=== PATIENT | male | born 1960 | race Caucasian/White ===

== ENCOUNTER 2022-08-13 09:43 | Outpatient (CLI) | payer BC, SELFPAY ==
--- NOTE | 2022-08-13 11:00 | NEURO_ITS ---
IMPRESSION: Complains of numbness of hands. Nondiabetic with history of Carpal Tunnel Release longtime ago # Mild Carpal tunnel syndrome bilaterally, left greater than right. 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 Motor Nerve Conduction Upper Extremities Median Nerve Conduction Velocity (m/sec) Terminal Latency (msec) Response Voltage(mV) Elbow-Wrist Wrist Elbow Wrist Right 46 4.0 2 2 Left 50 4.6 3 2 Ulnar Nerve Conduction Velocity (m/sec) Terminal Latency (msec) Response Voltage(mV) Above Elbow Below Elbow Wrist Above Elbow Below Elbow Wrist Right 48 45 2.8 6 3 9 Left 54 57 3.4 7 7 7 F-Wave Latency Median (ms) Ulnar (ms) Right 26.0 33.2 Left 29.0 33.6 Sensory Nerve Conduction Upper Extremities Median Nerve Stimulation Terminal Latency (msec) Wrist/Digit Response Voltage (uV) Wrist Right 4.2/4.2 53/55 Left 6.8/6.3 4/15 Ulnar Nerve Stimulation Terminal Latency (msec) Wrist/Digit Response Voltage (uV) Wrist Right 3.8 57 Left 3.7 68 Radial Nerve Terminal Latency (msec) Response Voltage(mV) Right 2.9 84 Left 2.6 42 Left Right Muscles Examined Fibrillation Fasciculation Scarcity Voltage Duration Left Right Left Right Left Right Left Right Left Right Deltoid Biceps X X Brachioradialis Triceps X X Pronator Teres X X Ext Indicis X X Ext Digitorum X X Abd Poll Brev X X 1st Dorsal Interosseus X X Abd Dig Min MTDD
== END 2022-08-13 09:44 | disposition home or self-care (01) ==
LOC: ANHNEURO 09:45
PROVIDERS: PCP Internal Medicine; Visit Provider Internal Medicine
DX: R20.2 Paresthesia of skin (principal); G56.01 Carpal tunnel syndrome, right upper limb; G56.21 Lesion of ulnar nerve, right upper limb
CPT/HCPCS: 95886; 95911

== ENCOUNTER 2022-12-23 09:49 | Outpatient (NON) | payer BC, SELFPAY | END 2022-12-23 09:50 | disposition home or self-care (01) | LOC: ANHLAB 12-24 09:52 | PROVIDERS: PCP Internal Medicine; Visit Provider Nurse Practitioner | DX: L57.0 Actinic keratosis (principal) | CPT/HCPCS: 88305 ==

== ENCOUNTER 2024-08-10 01:21 | Day surgery (SDC) | payer BC, SELFPAY ==
[2024-07-25 14:43] VITALS: BMI 24.4
[2024-08-10 08:21] VITALS: BMI 25.9
[2024-08-10 08:26] VITALS: BP 139/88; PULSE 69; RESP 18; TEMP 36.1; O2SAT 99
[2024-08-10] MEDS: LACTATED RINGERS 1,000 ML 150 ML IV CONT (08:33)
--- NOTE | 2024-08-10 09:05 | P.PNAN_ITS ---
Anes - Initial Pre Proc Eval Procedure: Operation Date: 08/10/24 09:30 Proposed Procedures p Colonoscopy - Justin Ely MD Date/Time: 08/10/24 09:05 Surgeon: Justin Ely MD Pre Op Diagnosis: + Cologuard Patient Data Age: 64 Gender: M Height: 1.78 m Weight: 81.9 kg Last Vital Signs Temp 97.0 F L 08/10/24 08:26 Pulse 69 08/10/24 08:26 Resp 18 08/10/24 08:26 BP 139/88 08/10/24 08:26 Pulse Ox 99 08/10/24 08:26 O2 Del Method Room Air 08/10/24 08:26 Allergies Allergy/AdvReac Type Severity Reaction Status Date / Time No Known Allergies Allergy Mild Verified 08/10/24 08:20 Home Medications Medication Instructions Recorded Confirmed Type aspirin 81 mg tablet 81 mg PO DAILY 07/25/24 07/25/24 History losartan 50 mg-hydrochlorothiazide 1 tablet PO DAILY 07/25/24 07/25/24 History 12.5 mg tablet meloxicam 15 mg tablet 15 mg PO DAILY 07/25/24 07/25/24 History omeprazole 40 mg capsule,delayed 40 mg PO DAILY 07/25/24 07/25/24 History release rosuvastatin 20 mg tablet 20 mg PO DAILY 07/25/24 07/25/24 History Patient hx anesthesia problems: none Family hx anesthesia problems: none Results Review: All pre-operative results and documents have been reviewed as part of the pre- operative evaluation. [facility] Social History Social History Smoking status: Never smoker Alcohol intake: current Drinks per week: 6 Substance use: current Substance use type: marijuana Last use: weekly Living arrangements: with family Spiritual care concerns: No Anes - Eval Final PreProcedure Day of Procedure 08/10/24 09:05 Patient weight: normal Heart: regular rate and rhythm Lungs: clear to auscultation Airway: Mallampati scale class II Neurological: alert and oriented Last oral intake: >/= 8 hours ASA classification: III Emergent: no Anesthetic plan: proceed Anesthesia type and monitoring: general GIVS and standard monitoring Results Review: All pre-operative results and documents have been reviewed as part of the pre- operative evaluation. Informed Consent: The patient's anesthetic plan and its attendant risks and benefits were discussed with the patient/family/POA. Questions were solicited and answers p rovided to the satisfaction of the patient/family/POA.
--- NOTE | 2024-08-10 09:15 | PM.IMHP ---
H&P: HPI History of Present Illness Date/Time: 08/10/24 09:15 Chief Complaint: Positive Cologuard Narrative: This is the patient's first colonoscopy. He had a positive cologuard test. There are no GI symptoms and there is no family history of colorectal cancer. Review of Systems Review of Systems: All systems reviewed & are unremarkable except as noted in HPI and below PMFSH Social History Social History Smoking status: Never smoker Alcohol intake: current Drinks per week: 6 Substance use: current Substance use type: marijuana Last use: weekly Living arrangements: with family Spiritual care concerns: No Meds Home Medications and Allergies Home Medications Medication Instructions Recorded Confirmed Type aspirin 81 mg tablet 81 mg PO DAILY 07/25/24 07/25/24 History losartan 50 mg-hydrochlorothiazide 1 tablet PO DAILY 07/25/24 07/25/24 History 12.5 mg tablet meloxicam 15 mg tablet 15 mg PO DAILY 07/25/24 07/25/24 History omeprazole 40 mg capsule,delayed 40 mg PO DAILY 07/25/24 07/25/24 History release rosuvastatin 20 mg tablet 20 mg PO DAILY 07/25/24 07/25/24 History Allergies Allergy/AdvReac Type Severity Reaction Status Date / Time No Known Allergies Allergy Mild Verified 08/10/24 08:20 Vital Signs Vital Signs - 24 hr 08/10/24 08:26 Temperature 97.0 F L Pulse Rate 69 Respiratory Rate 18 Blood Pressure 139/88 Pulse Oximetry 99 Oxygen Delivery Room Air Exam Const: General: cooperative and healthy appearing Resp: Effort & Inspection: normal respiratory effort and able to speak in complete sentences Auscultation: clear to auscultation bilaterally Cardio: Rate: regular rate Rhythm: regular rhythm GI: Inspection: normal to inspection GI Palp: No No hepatosplenomegaly present Auscultation: normal bowel sounds Rectal Exam: deferred Skin: General skin exam: normal color Psych: Appearance: grossly normal Mental Status: mental status grossly normal Assessment and Plan Assessment and plan (1) Positive colorectal cancer screening using Cologuard test: Code(s): R19.5 - Other fecal abnormalities Status: Acute Assessment and Plan: The patient is deemed a good candidate for the procedure. Consent signed. Will proceed.
[2024-08-10 09:37] VITALS: BP 119/82; PULSE 63; RESP 18; O2SAT 100
[2024-08-10 09:47] VITALS: BP 134/89; PULSE 58; RESP 18; O2SAT 100
[2024-08-10 09:57] VITALS: BP 140/78; PULSE 58; RESP 18; O2SAT 100
== END 2024-08-10 10:03 | disposition home or self-care (01) ==
PROVIDERS: PCP Internal Medicine; Visit Provider Internal Medicine Gastroenterology
PROC: 0DJD8ZZ Inspection of Lower Intestinal Tract, Via Natural or Artificial Opening Endoscopic (ICD-10-PCS; CPT 45378; principal; 2024-08-10 09:30)
DX: R19.5 Other fecal abnormalities (principal); D12.5 Benign neoplasm of sigmoid colon; K57.30 Diverticulosis of large intestine without perforation or abscess without bleeding; K64.0 First degree hemorrhoids; F12.90 Cannabis use, unspecified, uncomplicated
CPT/HCPCS: 45385; 88305; J2704; J7120

== ENCOUNTER 2025-05-09 08:15 | Outpatient (RCR) | payer BC, SELFPAY ==
[2025-02-08 10:46] VITALS: BMI 24.0
[2025-02-08 11:21] VITALS: BMI 24.0
[2025-03-08 09:30] VITALS: BMI 23.8
[2025-03-08 09:31] VITALS: BMI 23.8
[2025-05-09 08:15] VITALS: BMI 23.8
[2025-05-09 08:19] VITALS: BMI 23.8
--- NOTE | 2025-05-09 16:24 | PCDIET ---
05/09/25: MNT consult/follow up notes faxed to referring provider.
== END 2025-05-09 23:59 | disposition home or self-care (01) ==
LOC: ANHDMC 08:15
PROVIDERS: PCP Internal Medicine; Visit Provider Internal Medicine
DX: E11.9 Type 2 diabetes mellitus without complications (principal); Z71.3 Dietary counseling and surveillance; Z71.89 Other specified counseling
CPT/HCPCS: 97802; 97803; G0108

== ENCOUNTER 2025-06-20 09:04 | Outpatient (RCR) | payer BC, SELFPAY | END 2025-09-11 12:41 | disposition home or self-care (01) | LOC: ANHDMC 09:04 | PROVIDERS: PCP Internal Medicine; Visit Provider Internal Medicine | DX: E11.9 Type 2 diabetes mellitus without complications (principal); Z71.89 Other specified counseling | CPT/HCPCS: G0108 ==